=== PATIENT | female | born 1990 | race Caucasian/White ===

== ENCOUNTER 2017-08-20 21:48 | Inpatient (IN) | payer OTHER ==
[2017-08-20 23:59] LABS: EGFR Non-African American 157.8 (>60); Uric Acid 4.6 mg/dL (2.3-6.6)
[2017-08-21 00:07] LABS: ABS Basophils 0.1 10^3/ul (0-0.2); ABS Eosinophils 0.7 10^3/ul (0-0.6); ABS Lymphocytes 2.6 10^3/ul (1.0-4.8); ABS Monocytes 1.2 10^3/ul (0-0.8); ABS Neutrophils 14.5 10^3/ul (1.5-7.7); ABS Nucleated RBC 0 10^3/ul; Eosinophil % 3.7 % (0-6); Hematocrit 39 % (35-47); Hemoglobin 13.2 g/dl (12.0-16.0); Lymphocyte % 13.8 % (25-47); Mean Corpuscular HGB Conc 34 g/dl (31-36); Mean Corpuscular Hemoglobin 31 pg (27-31); Mean Corpuscular Volume 91 fL (80-97); Mean Platelet Volume 10 um3 (7.4-10.4); Nucleated Red Blood Cells % 0.1; Platelet Count 294 10^3/ul (150-450); Red Blood Count 4.32 10^6/ul (4.0-5.4); Red Cell Distribution Width 14 % (10.5-15); White Blood Count 19.1 10^3/ul (3.5-10.8)
[2017-08-21] MEDS ORDERED: Nalbuphine* 20 MG/ML 1 ML VIAL IV PRN (00:17)
[2017-08-21] MEDS ORDERED: Promethazine INJ(RESTRICTED)* 25 MG/ML 1 ML VIAL IM PRN (00:18)
[2017-08-21] MEDS ORDERED: OBEPIDURAL* 250 ML EPIDURAL ONE (07:00)
[2017-08-21] MEDS ORDERED: Oxytocin in LR* 20 UNITS/1,000 ML BAG IVPB SCH ×2 (07:00→23:00)
[2017-08-21] MEDS ORDERED: Phenylephrine IV* 40 MCG/ML 10 ML SYRINGE IV PUSH PRN ×2 (08:05)
[2017-08-21] MEDS ORDERED: Sodium Citrate/Citric Acid* 15 ML UDC PO PRN (08:05)
[2017-08-21] MEDS ORDERED: OBEPIDURAL* 250 ML EPIDURAL SCH (09:00)
[2017-08-21] MEDS ORDERED: Dibucaine 1% 28.35 GM TUBE PR PRN (22:42)
[2017-08-21] MEDS ORDERED: Witch Hazel PAD* JAR TOPICAL PRN (22:42)
[2017-08-21] MEDS ORDERED: Glycerin ADULT SUPP PR PRN (22:42)
[2017-08-21] MEDS: Ibuprofen TAB* 600 MG PO PRN (23:52)
[2017-08-22] MEDS ORDERED: Nicotine Inhaler* 10 MG AMP Q2H PRN CRAVING INH (02:00)
[2017-08-22] MEDS ORDERED: Mouth Piece, Nicotine* 1 EACH CARTRIDGE INH ONE (02:00)
[2017-08-22] MEDS ORDERED: Lidocaine 1% MPF* 2 ML VIAL ONE (04:25)
[2017-08-22 06:15] LABS: ABS Basophils 0.1 10^3/ul (0-0.2); ABS Eosinophils 0.2 10^3/ul (0-0.6); ABS Lymphocytes 2.1 10^3/ul (1.0-4.8); ABS Monocytes 1.5 10^3/ul (0-0.8); ABS Neutrophils 17.2 10^3/ul (1.5-7.7); ABS Nucleated RBC 0 10^3/ul; Eosinophil % 0.9 % (0-6); Hematocrit 34 % (35-47); Hemoglobin 11.5 g/dl (12.0-16.0); Lymphocyte % 9.8 % (25-47); Mean Corpuscular HGB Conc 34 g/dl (31-36); Mean Corpuscular Hemoglobin 31 pg (27-31); Mean Corpuscular Volume 91 fL (80-97); Mean Platelet Volume 9 um3 (7.4-10.4); Nucleated Red Blood Cells % 0; Platelet Count 245 10^3/ul (150-450); Red Blood Count 3.75 10^6/ul (4.0-5.4); Red Cell Distribution Width 13 % (10.5-15)
[2017-08-22] MEDS: Ibuprofen TAB* 600 MG PO PRN ×3 (07:30→21:50)
[2017-08-22] MEDS: Docusate CAP* 100 MG PO SCH ×3 (08:18→21:50)
[2017-08-22] MEDS ORDERED: Simethicone TAB* 80 MG TAB.CHEW PO SCH (08:30)
[2017-08-22] MEDS ORDERED: Ferrous Gluconate TAB* 324 MG TAB PO SCH (09:00)
--- NOTE | 2017-08-22 21:06 | PTEDU ---
Patient Name: JUSTIN JACOBO JUSTIN JACOBO selected video: Follow Me Mum: [employer] to view on 08/22/2017 at 9:05:46 PM [id number]
--- NOTE | 2017-08-22 21:28 | PTEDU ---
Patient Name: JUSTIN JACOBO JUSTIN JACOBO selected video: Follow Me Mum: [employer] [facility] Successful to view on 08/22/2017 at 9:27:41 PM [id number]
[2017-08-23] MEDS: Acetaminophen TAB* 325 MG PO PRN ×2 (02:57→08:18)
[2017-08-23] MEDS: Ibuprofen TAB* 600 MG PO PRN (05:40)
[2017-08-23] MEDS: Docusate CAP* 100 MG PO SCH (08:18)
[2017-08-23 08:46] VITALS: BP 132/81
== END 2017-08-23 11:03 | disposition home or self-care (01) | DRG 560 ==
LOC: MCHOBOUT 21:48 → MCHOB 22:43
PROVIDERS: ADMIT Midwife; ATTEND Midwife
PROC: 10907ZC Drainage of Amniotic Fluid, Therapeutic from Products of Conception, Via Natural or Artificial Opening (ICD-10-PCS; principal; 2017-08-21)
PROC: 10E0XZZ Delivery of Products of Conception, External Approach (ICD-10-PCS; 2017-08-21)
PROC: 4A1HX4Z Monitoring of Products of Conception, Cardiac Electrical Activity, External Approach (ICD-10-PCS; 2017-08-21)
PROC: 3E033VJ Introduction of Other Hormone into Peripheral Vein, Percutaneous Approach (ICD-10-PCS; 2017-08-21)
DX: O42.12 Full-term premature rupture of membranes, onset of labor more than 24 hours following rupture (principal); O32.2XX0 Maternal care for transverse and oblique lie, not applicable or unspecified; F17.210 Nicotine dependence, cigarettes, uncomplicated; O69.81X0 Labor and delivery complicated by cord around neck, without compression, not applicable or unspecified; O99.334 Smoking (tobacco) complicating childbirth; Z3A.39 39 weeks gestation of pregnancy; Z37.0 Single live birth; Z91.410 Personal history of adult physical and sexual abuse; O70.0 First degree perineal laceration during delivery; O77.0 Labor and delivery complicated by meconium in amniotic fluid; O76 Abnormality in fetal heart rate and rhythm complicating labor and delivery
CPT/HCPCS: 36415; 80053; 81002; 84112; 84550; 85025; 86850; 86900; 86901; A9270-GY